=== PATIENT | male | born 1955 | race Caucasian/White ===

== ENCOUNTER 2019-08-30 21:34 | Emergency (ER) | payer OTHER ==
[~2019-08-30] VITALS: Ht 177.8 cm; Wt 93.4 kg
[2019-08-30] MEDS ORDERED: LIDOCAINE 5% (LIDODERM) PATCH TD ONE (23:00)
[2019-08-30] MEDS ORDERED: ACETAMINOPHEN 325 MG TAB PO ONE (23:00)
--- NOTE | 2019-08-30 23:31 | REPVR ---
PROCEDURE INFORMATION: Exam: CT Lumbar Spine Without Contrast Exam date and time: 08/30/2019 10:58 PM Age: 63 years old Clinical indication: Injury or trauma; Fall; Initial encounter; Blunt trauma (contusions or hematomas); Additional info: Fall yesterday, landed on face TECHNIQUE: Imaging protocol: Computed tomography images of the lumbar spine without contrast. Radiation optimization: All CT scans at this facility use at least one of these dose optimization techniques: automated exposure control; mA and/or kV adjustment per patient size (includes targeted exams where dose is matched to clinical indication); or iterative reconstruction. COMPARISON: No relevant prior studies available. FINDINGS: Vertebrae: Lumbar lordosis is preserved. Vertebral body heights are maintained. Multilevel mild facet arthropathy. No acute lumbar spine fracture. No measurable spondylolisthesis. Discs/Spinal canal/Neural foramina: Degenerative disc height loss and osteophyte formation at L4-L5. Remaining disc space heights are preserved. Soft tissues: Unremarkable. IMPRESSION: 1. No acute findings in the lumbar spine. 2. Other chronic findings, as above. Electronically signed by: Bill Marin On 08/30/2019 23:31:00 PM
--- NOTE | 2019-08-30 23:35 | REPVR ---
PROCEDURE INFORMATION: Exam: CT Head Without Contrast Exam date and time: 08/30/2019 10:58 PM Age: 63 years old Clinical indication: Injury or trauma; Fall; Initial encounter; Concussion / head injury; Consciousness not specified; Additional info: Fall yesterday, landed on face TECHNIQUE: Imaging protocol: Computed tomography of the head without contrast. Radiation optimization: All CT scans at this facility use at least one of these dose optimization techniques: automated exposure control; mA and/or kV adjustment per patient size (includes targeted exams where dose is matched to clinical indication); or iterative reconstruction. COMPARISON: No relevant prior studies available. FINDINGS: Brain: Right middle cranial fossa arachnoid cyst. Subtle, patchy areas of hypoattenuation in the periventricular and subcortical white matter, nonspecific but suggestive of mild chronic small vessel ischemic disease. Focal, well-circumscribed hypodensities in the basal ganglia, consistent with chronic lacunar infarcts. No CT evidence of acute intracranial hemorrhage or acute territorial infarction. No significant mass effect or midline shift. Basal cisterns patent. Ventricles: Prominence of the cortical sulci, cisterns and ventricular system, consistent with cerebral and cerebellar volume loss. Bones/joints: No acute osseous abnormality. Sinuses: Grossly unremarkable. Mastoid air cells: Grossly unremarkable. Soft tissues: Grossly unremarkable. IMPRESSION: 1. No CT evidence of acute intracranial pathology. 2. Additional findings, as above. Electronically signed by: Ed Adam On 08/30/2019 23:35:11 PM
--- NOTE | 2019-08-30 23:40 | REPVR ---
PROCEDURE INFORMATION: Exam: CT Maxillofacial Without Contrast Exam date and time: 08/30/2019 10:58 PM Age: 63 years old Clinical indication: Face pain; Additional info: Fall yesterday, landed on face TECHNIQUE: Imaging protocol: Computed tomography images of the face without contrast. Axial, coronal and sagittal reformatted images were created and reviewed. Radiation optimization: All CT scans at this facility use at least one of these dose optimization techniques: automated exposure control; mA and/or kV adjustment per patient size (includes targeted exams where dose is matched to clinical indication); or iterative reconstruction. COMPARISON: No relevant prior studies available. FINDINGS: Orbits: No acute intraorbital abnormality. Globes intact. Bones/joints: No acute fracture. Sinuses: Mild ethmoid and left greater than right maxillary sinus mucosal thickening. Soft tissues: Unremarkable. Other findings: Poor dentition. IMPRESSION: 1. No acute facial bone fracture. 2. Additional findings, as above. Electronically signed by: Ed Adam On 08/30/2019 23:39:53 PM
[2019-08-31] MEDS ORDERED: ASPE4PAD TOP (00:07)
[2019-08-31] MEDS ORDERED: BIOF4GEL4 TOP (00:07)
[2019-08-31 00:24] VITALS: BP 160/74
--- NOTE | 2019-08-31 01:40 | REP ---
Clinical: Trauma. 18 most cyst. Technique: AP, lateral, bilateral oblique views left first toe . Findings: The osseous structures and joint spaces are intact and demonstrate age-related degenerative changes. There is no evidence for acute fracture or dislocation. Surrounding soft tissues are unremarkable. No subcutaneous emphysema or radiodense foreign body. Impression: No acute fracture or dislocation. Electronically Signed by Reg Aldana MD 08/31/2019 01:31 A
--- NOTE | 2019-08-31 01:41 | REP ---
Clinical: Trauma. Technique: AP, lateral, bilateral oblique and sunrise views right knee . Findings: The osseous structures and joint spaces are intact and demonstrate generalized age-related changes. Lateral view suggests mild anterior prepatellar swelling. There is no evidence for acute fracture or dislocation. No subcutaneous emphysema or radiodense foreign body. Impression: Mild anterior swelling cannot be excluded. No acute fracture or dislocation. Electronically Signed by eRg Aldana MD 08/31/2019 01:33 A
[2019-08-31] MEDS ORDERED: **NOTE PATIENT COMMENT** MISC XX ONE (09:00)
== END 2019-08-31 00:25 | disposition home or self-care (01) ==
LOC: M ED 21:34
DX: S39.012A Strain of muscle, fascia and tendon of lower back, initial encounter (principal); S00.81XA Abrasion of other part of head, initial encounter; S80.211A Abrasion, right knee, initial encounter; S40.211A Abrasion of right shoulder, initial encounter; S90.112A Contusion of left great toe without damage to nail, initial encounter; M54.9 Dorsalgia, unspecified; W01.0XXA Fall on same level from slipping, tripping and stumbling without subsequent striking against object, initial encounter; Y92.480 Sidewalk as the place of occurrence of the external cause; Y93.01 Activity, walking, marching and hiking